=== PATIENT | female | born 1980 | race Caucasian/White ===

== ENCOUNTER → 2020-02-22 07:28 | Outpatient (CLI) | payer OTHER, SELFPAY ==
[2020-02-22 08:50] LABS: Add Manual Diff / Slide Review NO; Basophils Absolute Auto 0 /uL (0-100); Basophils Percent Auto 0.6 % (0-2); Eosinophils Absolute Auto 100 /uL (0-450); Eosinophils Percent Auto 1.8 % (2-4); Hematocrit 36.8 % (36-46); Hemoglobin 12.3 g/dL (12.0-16.0); Lymphocytes Absolute Auto 1800 /uL (1100-4500); Mean Corpuscular HGB Conc 33.4 % (30-36); Mean Corpuscular Hemoglobin 31.3 PG (26-34); Mean Corpuscular Volume 93.5 fL (80-100); Monocytes Absolute Auto 300 /uL (0-900); Neutrophils Absolute Auto 3800 /uL (1500-7000); Neutrophils Percent Auto 62.6 % (50-75); Platelet Count 273 X10^3/uL (150-400); Red Blood Cell Count 3.93 X10^6/uL (4.0-5.2); Red Cell Distribution Width 12.9 % (11.6-14.8); White Blood Cell Count 6.2 X10^3/uL (4.5-11.0)
[2020-02-22 09:15] LABS: Alanine Aminotransferase 14 IU/L (<35); Albumin Globulin Ratio 1.5 (1.0-2.8); Alkaline Phosphatase 52 U/L (38-126); Aspartate Aminotransferase 21 IU/L (14-36); BUN Creatinine Ratio 25.8 (6-22); Bilirubin Total 0.8 mg/dL (0.2-1.3); Blood Urea Nitrogen 17 mg/dL (7-17); Calcium 8.8 mg/dL (8.4-10.2); Carbon Dioxide 29 mmol/L (22-32); Chloride 109 mmol/L (98-107); Cholesterol 171 mg/dL (140-199); Estimated Glomerular Filt Rate > 60.0 mL/min (>60); Globulin 2.7 g/dL (1.7-4.1); Glucose 80 mg/dL (70-100); HDL Cholesterol 61 mg/dL (40-60); HEMOLYSIS < 15 (0-50); LDL Cholesterol Calculated 101 mg/dL (<100); Potassium 3.9 mmol/L (3.4-5.1); Sodium 138 mmol/L (137-145); Total Protein 6.7 g/dL (6.3-8.2); Triglycerides 45 mg/dL (35-150)
[2020-02-22 09:57] LABS: Free T4, Direct Thyroxine 0.82 ng/dL (0.78-2.19)
[2020-02-22 10:10] LABS: Thyroid Stimulating Hormone 1.72 uIU/mL (0.47-4.68)
[2020-02-22 10:26] LABS: Appearance Urine UA CLEAR; Bilirubin Urine UA NEGATIVE (NEGATIVE); Color Urine UA YELLOW; Glucose Urine UA NEGATIVE (Negative); Ketones Urine UA NEGATIVE (NEGATIVE); Leukocyte Esterase Urine UA NEGATIVE (NEGATIVE); Nitrite Urine UA NEGATIVE (Negative); Occult Blood Urine UA NEGATIVE (Negative); Protein Urine UA NEGATIVE (Negative); Specific Gravity Urine UA 1.015 (1.000-1.035); Urobilinogen Urine UA 0.2 E.U./dL (0.2)
[2020-02-22 10:29] LABS: pH Urine UA 7.5 (4.5-8.0)
== END ==
PROVIDERS: Family Provider Emergency Medicine; PCP Registered Nurse; Referring Provider Registered Nurse; Visit Provider Registered Nurse
DX: Z00.00 Encounter for general adult medical examination without abnormal findings (principal); E03.9 Hypothyroidism, unspecified; D64.9 Anemia, unspecified; Z82.49 Family history of ischemic heart disease and other diseases of the circulatory system
CPT/HCPCS: 36415; 80053; 80061; 81003; 84439; 84443; 85025

== ENCOUNTER → 2020-06-13 08:15 | Outpatient (CLI) | payer OTHER, SELFPAY ==
[2020-06-13 09:46] LABS: Free T4, Direct Thyroxine 0.81 ng/dL (0.78-2.19)
[2020-06-13 10:00] LABS: Thyroid Stimulating Hormone 3.24 uIU/mL (0.47-4.68)
== END ==
PROVIDERS: Family Provider Emergency Medicine; PCP Registered Nurse; Referring Provider Registered Nurse; Visit Provider Registered Nurse
DX: E03.9 Hypothyroidism, unspecified (principal)
CPT/HCPCS: 36415; 84439; 84443

== ENCOUNTER → 2021-04-06 10:16 | Outpatient (CLI) | payer OTHER, SELFPAY ==
[2021-04-06 11:20] LABS: Appearance Urine UA CLEAR; Bilirubin Urine UA NEGATIVE (NEGATIVE); Color Urine UA YELLOW; Glucose Urine UA NEGATIVE (Negative); Ketones Urine UA NEGATIVE (NEGATIVE); Leukocyte Esterase Urine UA 2+ (NEGATIVE); Nitrite Urine UA NEGATIVE (Negative); Occult Blood Urine UA 2+ (Negative); Protein Urine UA NEGATIVE (Negative); Specific Gravity Urine UA <=1.005 (1.000-1.035); Urobilinogen Urine UA 0.2 E.U./dL (0.2)
[2021-04-06 11:32] LABS: Bacteria Urine Moderate (10-30); RBC Urine 1-5/HPF (0-5/HPF); WBC Urine 30-100/HPF (0-5/HPF)
[2021-04-06 11:33] LABS: Culture Indicated Urine Specimen Cultured
== END ==
PROVIDERS: Family Provider Emergency Medicine; PCP Family Medicine; Referring Provider Family Medicine; Visit Provider Family Medicine
DX: R30.0 Dysuria (principal)
CPT/HCPCS: 81001; 87077; 87086; 87186

== ENCOUNTER → 2021-05-23 08:51 | Outpatient (CLI) | payer OTHER, SELFPAY ==
[2021-05-23 10:04] LABS: Add Manual Diff / Slide Review NO; Basophils Absolute Auto 0 /uL (0-100); Basophils Percent Auto 0.6 % (0-2); Eosinophils Absolute Auto 100 /uL (0-450); Eosinophils Percent Auto 2.1 % (2-4); Hematocrit 33.2 % (36-46); Hemoglobin 11.5 g/dL (12.0-16.0); Lymphocytes Absolute Auto 1600 /uL (1100-4500); Lymphocytes Percent Auto 30.6 % (25-40); Mean Corpuscular HGB Conc 34.6 % (30-36); Mean Corpuscular Volume 92.5 fL (80-100); Monocytes Absolute Auto 300 /uL (0-900); Monocytes Percent Auto 5.4 % (3-14); Neutrophils Absolute Auto 3200 /uL (1500-7000); Neutrophils Percent Auto 61.3 % (50-75); Platelet Count 296 X10^3/uL (150-400); Red Blood Cell Count 3.59 X10^6/uL (4.0-5.2); Red Cell Distribution Width 12.8 % (11.6-14.8); White Blood Cell Count 5.2 X10^3/uL (4.5-11.0)
[2021-05-23 10:19] LABS: Alanine Aminotransferase 21 IU/L (<35); Albumin 4.3 g/dL (3.5-5.0); Albumin Globulin Ratio 1.7 (1.0-2.8); Alkaline Phosphatase 41 U/L (38-126); Aspartate Aminotransferase 28 IU/L (14-36); Bilirubin Total 0.5 mg/dL (0.2-1.3); Blood Urea Nitrogen 9 mg/dL (7-17); Calcium 9.1 mg/dL (8.4-10.2); Carbon Dioxide 28 mmol/L (22-32); Chloride 108 mmol/L (98-107); Cholesterol 147 mg/dL (140-199); Estimated Glomerular Filt Rate > 60.0 mL/min (>60); Globulin 2.6 g/dL (1.7-4.1); Glucose 86 mg/dL (70-100); HDL Cholesterol 58 mg/dL (40-60); HEMOLYSIS < 15 (0-50); LDL Cholesterol Calculated 76 mg/dL (<100); Potassium 3.8 mmol/L (3.4-5.1); Sodium 140 mmol/L (137-145); Total Protein 6.9 g/dL (6.3-8.2); Triglycerides 65 mg/dL (35-150)
[2021-05-23 10:51] LABS: TSH w/ Reflex to FT4 3.21 uIU/mL (0.47-4.68)
== END ==
PROVIDERS: Family Provider Emergency Medicine; PCP Family Medicine; Referring Provider Family Medicine; Visit Provider Family Medicine
DX: E03.9 Hypothyroidism, unspecified (principal); E78.5 Hyperlipidemia, unspecified
CPT/HCPCS: 36415; 80053; 80061; 84443; 85025

== ENCOUNTER 2021-07-25 08:15 | Outpatient (RCR) | payer OTHER, SELFPAY ==
--- NOTE | 2021-06-20 12:47 | PT.OIE ---
Current Diagnoses Stress incontinence (female) (male) (06/20/21) Past Medical History (Last Reviewed 07/08/20 @ 08:30 by Cj Zuluaga MD) Acne Anemia, unspecified History of dilatation and curettage (~04/2017) Past Surgical History (Last Reviewed 07/08/20 @ 08:30 by Cj Zuluaga MD) Anesthesia History of dilatation and curettage (~04/2017) History of hysteroscopy (~10/2017) In vitro fertilization Visit Care Team Role Provider Type Cj Zuluaga MD Attending Provider Physician Family Provider Primary Care Provider Referring Provider Specialty: Family Practice Address: [address] [place] [address] Email: [email or web address] Physical Therapy Initial Evaluation PT-OP-A Visit Information Start: 06/19/21 13:16 Freq: Status: Active Protocol: Document 06/20/21 09:02 AMB (Rec: 06/20/21 09:36 AMB [id number]) Out-Patient Physical Therapy Visit Information Visit Information Visit Type Initial Evaluation Visit Start Time 09:00 Visit Stop Time 09:45 Total Visit Minutes 45 Visit Number 1 PT-OP-B Current Condition Start: 06/19/21 13:16 Freq: Status: Active Protocol: Document 06/20/21 09:02 AMB (Rec: 06/20/21 09:36 AMB [id number]) Current Condition History of Current Condition Onset Date 2019 Current Complaints Stress urinary incontinence History of Current Condition Natalya reports leaking with running and jumping. She reports one vaginal with 3 hours of pushing, from her description likely second degree tear. Running/jumping increase leaking, denies leaking with cough/sneeze. Denies chronic constipation, chronic cough, pelvic heaviness, urge incontinence, any leaking before the of her child. Treatment Goals Patient/Caregiver Goals Run without leaking Prior Functional Status Baseline Function- ADL's Independent Baseline Function- Mobility Independent Personal Factors Other Personal Factors That May Effect none Therapy/Recovery PT-OP-C Subjective Start: 06/19/21 13:16 Freq: Status: Active Protocol: Document 06/20/21 09:00 AMB (Rec: 06/22/21 11:42 AMB [id number]) Patient Questionnaires Pelvic Pain and Urgency/Frequency Patient Symptom Scale Pelvic Pain Score 10 PT-OP-I Pelvic Floor Start: 06/19/21 13:16 Freq: Status: Active Protocol: Document 06/20/21 09:00 AMB (Rec: 06/22/21 11:42 [facility] [id number]) Pelvic Floor Assessment Urine Pelvic Floor Surgery No Leakage Size Medium Leakage Cause Exercise Voiding Frequency 5/day Nocturia 1 Urine Pad Type Panty Liner Prolapse Rectocele Grade 2 Perineal Descent Resting Absent Bearing Present Contraction Ability Voluntary Contraction Weak Voluntary Relaxation Moderate Manual Muscle Testing Left 2 Manual Muscle Testing Right 2 Manual Muscle Testing Anterior 2 Manual Muscle Testing Posterior 3 Muscle Endurance (Seconds) 4 Number of Quick Contractions In 10 4 Seconds Comments Pelvic Floor Comments Natalya had difficulty elizabeth pelvic floor anteriorly. Difficulty maintaining contraction for more than 4 seconds. PT-OP-T Assessment and Plan Start: 06/19/21 13:16 Freq: Status: Active Protocol: Document 06/20/21 09:00 AMB (Rec: 06/22/21 11:42 [facility] [id number]) Physical Therapy Assessment Rehab Potential Rehabilitation Potential Good Evaluation Complexity Number of Personal Factors/Comorbidities 0 Number of Body Systems Impaired 1-2 Clinical Presentation at Evaluation Stable Impairments Impairments Activity Tolerance,Strength Goals Two Impairment Pelvic floor strength Short Term Goal (STG) Natalya will contract her pelvic floor for 10 seconds. STG Duration 4 weeks Skilled Nursing Goal (LTG) Natalya will contract her pelvic floor while moving from sit to stand. LTG Duration 8 weeks One Impairment Continence Short Term Goal (STG) Natalya will hop without leaking. STG Duration 4 weeks Skilled Nursing Goal (LTG) Natalya will go on a 1 mile run without leaking. LTG Duration 8weeks Assessment Summary Assessment Natalya attends physical therapy with [facility] with jumping and running s/p of her daughter almost 3 years ago. She does show signs of rectocele upon exam, but does not have a subjective experience of heaviness. She did have difficulty recruiting the anterior portion of her pelvic floor muscles, despite history of working on kegels. She will benefit from physical therapy to improve her pelvic floor strength and reduce her incontinence. Physical Therapy Plan Frequency and Duration Frequency of Treatment 1x/Week Duration of Treatment 10 weeks Plan of Care Start Date 06/20/21 Plan of Care End Date 08/29/21 Therapeutic Interventions Therapeutic Interventions Gait Training,Home Exercise Program,Manual Therapy, Neuromuscular Re-education, Self-Care/Home Management, Therapeutic Activities, Therapeutic Exercises Modalities Biofeedback,Electric Stimulation Next Visit Focus/Plan Next Note Type Treatment Note Next Visit Plan Review HEP- quick flicks and long holds in supine>sit>stand
--- NOTE | 2021-06-20 12:49 | PT.OPPOC ---
Physical, Occupational & Speech Therapy At [facility] Current Diagnoses Stress incontinence (female) (male) (06/20/21) Visit Care Team Role Provider Type Cj Zuluaga MD Attending Provider Physician Family Provider Primary Care Provider Referring Provider Specialty: Family Practice Address: [address] [place] [address] Email: [email or web address] Plan Of Care PT-OP-T Assessment and Plan Start: 06/19/21 13:16 Freq: Status: Active Protocol: Document 06/20/21 09:00 AMB (Rec: 06/22/21 11:42 AMB [id number]) Physical Therapy Assessment Rehab Potential Rehabilitation Potential Good Evaluation Complexity Number of Personal Factors/Comorbidities 0 Number of Body Systems Impaired 1-2 Clinical Presentation at Evaluation Stable Impairments Impairments Activity Tolerance,Strength Goals Two Impairment Pelvic floor strength Short Term Goal (STG) Natalya will contract her pelvic floor for 10 seconds. STG Duration 4 weeks Program Rep Goal (LTG) Natalya will contract her pelvic floor while moving from sit to stand. LTG Duration 8 weeks One Impairment Continence Short Term Goal (STG) Natalya will hop without leaking. STG Duration 4 weeks Fpc Goal (LTG) Natalya will go on a 1 mile run without leaking. LTG Duration 8weeks Assessment Summary Assessment Natalya attends physical therapy with [facility] with jumping and running s/p of her daughter almost 3 years ago. She does show signs of rectocele upon exam, but does not have a subjective experience of heaviness. She did have difficulty recruiting the anterior portion of her pelvic floor muscles, despite history of working on kegels. She will benefit from physical therapy to improve her pelvic floor strength and reduce her incontinence. Physical Therapy Plan Frequency and Duration Frequency of Treatment 1x/Week Duration of Treatment 10 weeks Plan of Care Start Date 06/20/21 Plan of Care End Date 08/29/21 Therapeutic Interventions Therapeutic Interventions Gait Training,Home Exercise Program,Manual Therapy, Neuromuscular Re-education, Self-Care/Home Management, Therapeutic Activities, Therapeutic Exercises Modalities Biofeedback,Electric Stimulation Next Visit Focus/Plan Next Note Type Treatment Note Next Visit Plan Review HEP- quick flicks and long holds in supine>sit>stand Plan of Care Dates Plan of Care Start Date 06/20/21 Plan of Care End Date 08/29/21 Electronically Signed by: Clare Albarran, PT 06/22/21 [id number] Please Sign and Return: I have reviewed this Plan of Care and certify that the skilled therapy services above are required to meet the patient?s needs. Physician Signature Date Printed Name and Credentials Clinical Instructor Signature Printed Name and Credentials
--- NOTE | 2021-07-04 09:20 | PT.OTN ---
Current Diagnoses Stress incontinence (female) (male) (07/04/21) Physical Therapy Treatment Note PT-OP-A Visit Information Start: 06/19/21 13:16 Freq: Status: Active Protocol: Document 07/04/21 08:17 AMB (Rec: 07/04/21 09:20 AMB [id number]) Out-Patient Physical Therapy Visit Information Visit Information Visit Type Treatment Note Visit Start Time 08:15 Visit Stop Time 09:00 Total Visit Minutes 45 Visit Number 2 PT-OP-B Current Condition Start: 06/19/21 13:16 Freq: Status: Active Protocol: Document 06/20/21 09:02 AMB (Rec: 06/20/21 09:36 AMB [id number]) Current Condition History of Current Condition Onset Date 2019 Current Complaints Stress urinary incontinence History of Current Condition Natalya reports leaking with running and jumping. She reports one vaginal with 3 hours of pushing, from her description likely second degree tear. Running/jumping increase leaking, denies leaking with cough/sneeze. Denies chronic constipation, chronic cough, pelvic heaviness, urge incontinence, any leaking before the of her child. Treatment Goals Patient/Caregiver Goals Run without leaking Prior Functional Status Baseline Function- ADL's Independent Baseline Function- Mobility Independent Personal Factors Other Personal Factors That May Effect none Therapy/Recovery PT-OP-C Subjective Start: 06/19/21 13:16 Freq: Status: Active Protocol: Document 07/04/21 08:17 AMB (Rec: 07/04/21 09:20 AMB [id number]) OP-PT Subjective Patient Comments Patient Reported Progress Same PT-OP-I Pelvic Floor Start: 06/19/21 13:16 Freq: Status: Active Protocol: Document 06/20/21 09:00 AMB (Rec: 06/22/21 11:42 AMB [id number]) Pelvic Floor Assessment Urine Pelvic Floor Surgery No Leakage Size Medium Leakage Cause Exercise Voiding Frequency 5/day Nocturia 1 Urine Pad Type Panty Liner Prolapse Rectocele Grade 2 Perineal Descent Resting Absent Bearing Present Contraction Ability Voluntary Contraction Weak Voluntary Relaxation Moderate Manual Muscle Testing Left 2 Manual Muscle Testing Right 2 Manual Muscle Testing Anterior 2 Manual Muscle Testing Posterior 3 Muscle Endurance (Seconds) 4 Number of Quick Contractions In 10 4 Seconds Comments Pelvic Floor Comments Natalya had difficulty elizabeth pelvic floor anteriorly. Difficulty maintaining contraction for more than 4 seconds. PT-OP-Q Treatments Start: 06/19/21 13:16 Freq: Status: Active Protocol: Document 07/04/21 08:17 AMB (Rec: 07/04/21 09:20 AMB [id number]) Therapeutic Exercises Supine Exercises legs on bolsters Supine Exercise Name quick flick/long hold Reps/Minutes 10 min Sitting Exercises roll in roll out Resistance #3 t band Reps/Minutes 2x10 Standing Exercises 1 Standing Exercise Name NBOS vs WBOS Comments challenging PT-OP-T Assessment and Plan Start: 06/19/21 13:16 Freq: Status: Active Protocol: Document 07/04/21 08:17 AMB (Rec: 07/04/21 09:20 AMB [id number]) Physical Therapy Assessment Goals Two Impairment Pelvic floor strength Short Term Goal (STG) Natalya will contract her pelvic floor for 10 seconds. STG Duration 4 weeks Control Director Goal (LTG) Natalya will contract her pelvic floor while moving from sit to stand. LTG Duration 8 weeks One Impairment Continence Short Term Goal (STG) Natalya will hop without leaking. STG Duration 4 weeks Control Director Goal (LTG) Natalya will go on a 1 mile run without leaking. LTG Duration 8weeks Assessment Summary Assessment Natalya did well with legs elevated on bolsters. Significantly harder with standing. Given seated roll in roll out for HEP. Physical Therapy Plan Next Visit Focus/Plan Next Visit Plan Review roll in roll out, can consider NMES vs standing progression based on sx
--- NOTE | 2021-07-11 15:37 | PT.OTN ---
Current Diagnoses Stress incontinence (female) (male) (07/11/21) Physical Therapy Treatment Note PT-OP-A Visit Information Start: 06/19/21 13:16 Freq: Status: Active Protocol: Document 07/11/21 08:15 AMB (Rec: 07/11/21 09:03 AMB [id number]) Out-Patient Physical Therapy Visit Information Visit Information Visit Type Treatment Note Visit Start Time 08:15 Visit Stop Time 09:00 Total Visit Minutes 45 Visit Number 3 PT-OP-B Current Condition Start: 06/19/21 13:16 Freq: Status: Active Protocol: Document 06/20/21 09:02 AMB (Rec: 06/20/21 09:36 AMB [id number]) Current Condition History of Current Condition Onset Date 2019 Current Complaints Stress urinary incontinence History of Current Condition Natalya reports leaking with running and jumping. She reports one vaginal with 3 hours of pushing, from her description likely second degree tear. Running/jumping increase leaking, denies leaking with cough/sneeze. Denies chronic constipation, chronic cough, pelvic heaviness, urge incontinence, any leaking before the of her child. Treatment Goals Patient/Caregiver Goals Run without leaking Prior Functional Status Baseline Function- ADL's Independent Baseline Function- Mobility Independent Personal Factors Other Personal Factors That May Effect none Therapy/Recovery PT-OP-C Subjective Start: 06/19/21 13:16 Freq: Status: Active Protocol: Document 07/11/21 08:15 AMB (Rec: 07/11/21 14:27 AMB [id number]) OP-PT Subjective Patient Comments Patient Comments Pt feels like her function is about the same, has been doing her exercises. PT-OP-I Pelvic Floor Start: 06/19/21 13:16 Freq: Status: Active Protocol: Document 06/20/21 09:00 AMB (Rec: 06/22/21 11:42 AMB [id number]) Pelvic Floor Assessment Urine Pelvic Floor Surgery No Leakage Size Medium Leakage Cause Exercise Voiding Frequency 5/day Nocturia 1 Urine Pad Type Panty Liner Prolapse Rectocele Grade 2 Perineal Descent Resting Absent Bearing Present Contraction Ability Voluntary Contraction Weak Voluntary Relaxation Moderate Manual Muscle Testing Left 2 Manual Muscle Testing Right 2 Manual Muscle Testing Anterior 2 Manual Muscle Testing Posterior 3 Muscle Endurance (Seconds) 4 Number of Quick Contractions In 10 4 Seconds Comments Pelvic Floor Comments Natalya had difficulty elizabeth pelvic floor anteriorly. Difficulty maintaining contraction for more than 4 seconds. PT-OP-Q Treatments Start: 06/19/21 13:16 Freq: Status: Active Protocol: Document 07/11/21 08:15 AMB (Rec: 07/11/21 14:27 AMB [id number]) Therapeutic Exercises Sitting Exercises sitting on plinth Reps/Minutes quick flicks> 4 second hold Comments cued awareness of relaxation sitting on 65cm ball Resistance up to 4-5 Reps/Minutes 10 min Comments awareness of relaxation, if can't feel it back off roll in roll out Resistance #3 t band Reps/Minutes 2x10 Other Exercises quadruped pelvic floor Comments challenging to feel PT-OP-T Assessment and Plan Start: 06/19/21 13:16 Freq: Status: Active Protocol: Document 07/11/21 08:15 AMB (Rec: 07/11/21 09:03 AMB [id number]) Physical Therapy Assessment Goals Two Impairment Pelvic floor strength Short Term Goal (STG) Natalya will contract her pelvic floor for 10 seconds. STG Duration 4 weeks Senior Living Goal (LTG) Natalya will contract her pelvic floor while moving from sit to stand. LTG Duration 8 weeks One Impairment Continence Short Term Goal (STG) Natalya will hop without leaking. STG Duration 4 weeks Senior Living Goal (LTG) Natalya will go on a 1 mile run without leaking. LTG Duration 8weeks Assessment Summary Assessment Natalya did better with encouragement to really feel the pelvic floor relax rather than trying to hold it for longer and not being able to feel it. Physical Therapy Plan Next Visit Focus/Plan Next Note Type Treatment Note Next Visit Plan Review roll in roll out, can consider NMES vs standing progression based on sx
--- NOTE | 2021-07-20 15:47 | PT.OTN ---
Current Diagnoses Stress incontinence (female) (male) (07/18/21) Physical Therapy Treatment Note PT-OP-A Visit Information Start: 06/19/21 13:16 Freq: Status: Active Protocol: Document 07/18/21 08:15 AMB (Rec: 07/18/21 08:56 AMB [id number]) Out-Patient Physical Therapy Visit Information Visit Information Visit Start Time 08:15 Visit Stop Time 09:00 Total Visit Minutes 45 Visit Number 4 PT-OP-B Current Condition Start: 06/19/21 13:16 Freq: Status: Active Protocol: Document 06/20/21 09:02 AMB (Rec: 06/20/21 09:36 AMB [id number]) Current Condition History of Current Condition Onset Date 2019 Current Complaints Stress urinary incontinence History of Current Condition Natalya reports leaking with running and jumping. She reports one vaginal with 3 hours of pushing, from her description likely second degree tear. Running/jumping increase leaking, denies leaking with cough/sneeze. Denies chronic constipation, chronic cough, pelvic heaviness, urge incontinence, any leaking before the of her child. Treatment Goals Patient/Caregiver Goals Run without leaking Prior Functional Status Baseline Function- ADL's Independent Baseline Function- Mobility Independent Personal Factors Other Personal Factors That May Effect none Therapy/Recovery PT-OP-C Subjective Start: 06/19/21 13:16 Freq: Status: Active Protocol: Document 07/18/21 08:15 AMB (Rec: 07/18/21 08:56 AMB [id number]) OP-PT Subjective Patient Comments Patient Comments HOld for 4 seconds at home is going well, 5-6 seconds is challenging PT-OP-I Pelvic Floor Start: 06/19/21 13:16 Freq: Status: Active Protocol: Document 06/20/21 09:00 AMB (Rec: 06/22/21 11:42 AMB [id number]) Pelvic Floor Assessment Urine Pelvic Floor Surgery No Leakage Size Medium Leakage Cause Exercise Voiding Frequency 5/day Nocturia 1 Urine Pad Type Panty Liner Prolapse Rectocele Grade 2 Perineal Descent Resting Absent Bearing Present Contraction Ability Voluntary Contraction Weak Voluntary Relaxation Moderate Manual Muscle Testing Left 2 Manual Muscle Testing Right 2 Manual Muscle Testing Anterior 2 Manual Muscle Testing Posterior 3 Muscle Endurance (Seconds) 4 Number of Quick Contractions In 10 4 Seconds Comments Pelvic Floor Comments Natalya had difficulty elizabeth pelvic floor anteriorly. Difficulty maintaining contraction for more than 4 seconds. PT-OP-Q Treatments Start: 06/19/21 13:16 Freq: Status: Active Protocol: Document 07/18/21 08:15 AMB (Rec: 07/18/21 08:56 AMB [id number]) Therapeutic Exercises Supine Exercises legs on bolsters Supine Exercise Name quick flick/long hold Reps/Minutes 10 min Neuro Re-Education Treatment Other Activities 1 Details NMES Comments 10 second hold and relaxation sEMG Comments baseline 1.5, max 8.4 avg 4.4. quick flicks: long holds: 8.3 max avg 4.8. PT-OP-T Assessment and Plan Start: 06/19/21 13:16 Freq: Status: Active Protocol: Document 07/18/21 08:15 AMB (Rec: 07/18/21 08:56 AMB [id number]) Physical Therapy Assessment Goals Two Impairment Pelvic floor strength Short Term Goal (STG) Natalya will contract her pelvic floor for 10 seconds. STG Duration 4 weeks Snf Goal (LTG) Natalya will contract her pelvic floor while moving from sit to stand. LTG Duration 8 weeks One Impairment Continence Short Term Goal (STG) Natalya will hop without leaking. STG Duration 4 weeks Snf Goal (LTG) Natalya will go on a 1 mile run without leaking. LTG Duration 8weeks Assessment Summary Assessment Focused on 4-5 second holds today, pt can do , did better with biofeedback than with NMES. continue to encourage being able to feel pelvic floor relaxing. Physical Therapy Plan Next Visit Focus/Plan Next Note Type Treatment Note Next Visit Plan Review roll in roll out, can consider NMES vs standing progression based on sx
--- NOTE | 2021-07-25 13:48 | PT.OTN ---
Current Diagnoses Stress incontinence (female) (male) (07/25/21) Physical Therapy Treatment Note PT-OP-A Visit Information Start: 06/19/21 13:16 Freq: Status: Active Protocol: Document 07/25/21 08:23 AMB (Rec: 07/25/21 09:10 AMB [id number]) Out-Patient Physical Therapy Visit Information Visit Information Visit Type Treatment Note Visit Start Time 08:15 Visit Stop Time 09:00 Total Visit Minutes 45 Visit Number 5 PT-OP-B Current Condition Start: 06/19/21 13:16 Freq: Status: Active Protocol: Document 06/20/21 09:02 AMB (Rec: 06/20/21 09:36 AMB [id number]) Current Condition History of Current Condition Onset Date 2019 Current Complaints Stress urinary incontinence History of Current Condition Natalya reports leaking with running and jumping. She reports one vaginal with 3 hours of pushing, from her description likely second degree tear. Running/jumping increase leaking, denies leaking with cough/sneeze. Denies chronic constipation, chronic cough, pelvic heaviness, urge incontinence, any leaking before the of her child. Treatment Goals Patient/Caregiver Goals Run without leaking Prior Functional Status Baseline Function- ADL's Independent Baseline Function- Mobility Independent Personal Factors Other Personal Factors That May Effect none Therapy/Recovery PT-OP-C Subjective Start: 06/19/21 13:16 Freq: Status: Active Protocol: Document 07/25/21 08:23 AMB (Rec: 07/25/21 09:10 AMB [id number]) OP-PT Subjective Patient Comments Patient Comments Hold 5x 4 and that feels good . PT-OP-I Pelvic Floor Start: 06/19/21 13:16 Freq: Status: Active Protocol: Document 06/20/21 09:00 AMB (Rec: 06/22/21 11:42 AMB [id number]) Pelvic Floor Assessment Urine Pelvic Floor Surgery No Leakage Size Medium Leakage Cause Exercise Voiding Frequency 5/day Nocturia 1 Urine Pad Type Panty Liner Prolapse Rectocele Grade 2 Perineal Descent Resting Absent Bearing Present Contraction Ability Voluntary Contraction Weak Voluntary Relaxation Moderate Manual Muscle Testing Left 2 Manual Muscle Testing Right 2 Manual Muscle Testing Anterior 2 Manual Muscle Testing Posterior 3 Muscle Endurance (Seconds) 4 Number of Quick Contractions In 10 4 Seconds Comments Pelvic Floor Comments Natalya had difficulty elizabeth pelvic floor anteriorly. Difficulty maintaining contraction for more than 4 seconds. PT-OP-Q Treatments Start: 06/19/21 13:16 Freq: Status: Active Protocol: Document 07/25/21 08:15 AMB (Rec: 07/25/21 13:46 AMB [id number]) Therapeutic Exercises Sitting Exercises 1 Sitting Exercise Name 5 hold with toe tap or UE flexion sitting on plinth Reps/Minutes quick flicks> 4 second hold Comments cued awareness of relaxation sitting on 65cm ball Resistance up to 4-5 Reps/Minutes 10 min Comments awareness of relaxation, i Other Exercises quadruped pelvic floor Comments challenging to feel PT-OP-T Assessment and Plan Start: 06/19/21 13:16 Freq: Status: Active Protocol: Document 07/25/21 08:23 AMB (Rec: 07/25/21 09:10 AMB [id number]) Physical Therapy Assessment Goals Two Impairment Pelvic floor strength Short Term Goal (STG) Natalya will contract her pelvic floor for 10 seconds. STG Duration 4 weeks Fpc Goal (LTG) Natalya will contract her pelvic floor while moving from sit to stand. LTG Duration 8 weeks One Impairment Continence Short Term Goal (STG) Natalya will hop without leaking. STG Duration 4 weeks Clinic [facility] Goal (LTG) Natalya will go on a 1 mile run without leaking. LTG Duration 8weeks Assessment Summary Assessment Toe tap on ball and UE flexion on ball during 5 holds x 4 ea as HEP today. Does have one finger width diastasis but not symptomatic at this time. Did discuss working pelvic floor into current exercises. Physical Therapy Plan Next Visit Focus/Plan Next Note Type Treatment Note Next Visit Plan Review roll in roll out, can consider NMES vs standing progression based on sx
--- NOTE | 2021-08-22 11:02 | PT.OPDS ---
Current Diagnoses Stress incontinence (female) (male) (07/25/21) Visit Care Team Role Provider Type Cj Zuluaga MD Attending Provider Physician Family Provider Primary Care Provider Referring Provider Specialty: Family Practice Address: [address] [place] [address], [facility] Email: [email or web address] Visit Number Visit Number 5 Discharge Summary PT-OP-B Current Condition Start: 06/19/21 13:16 Freq: Status: Active Protocol: Document 06/20/21 09:02 AMB (Rec: 06/20/21 09:36 AMB [id number]) Current Condition History of Current Condition Onset Date 2019 Current Complaints Stress urinary incontinence History of Current Condition Natalya reports leaking with running and jumping. She reports one vaginal with 3 hours of pushing, from her description likely second degree tear. Running/jumping increase leaking, denies leaking with cough/sneeze. Denies chronic constipation, chronic cough, pelvic heaviness, urge incontinence, any leaking before the of her child. Treatment Goals Patient/Caregiver Goals Run without leaking Prior Functional Status Baseline Function- ADL's Independent Baseline Function- Mobility Independent Personal Factors Other Personal Factors That May Effect none Therapy/Recovery PT-OP-C Subjective Start: 06/19/21 13:16 Freq: Status: Active Protocol: Document 07/25/21 08:23 AMB (Rec: 07/25/21 09:10 AMB [id number]) OP-PT Subjective Patient Comments Patient Comments Hold 5x 4 and that feels good . PT-OP-I Pelvic Floor Start: 06/19/21 13:16 Freq: Status: Active Protocol: Document 06/20/21 09:00 AMB (Rec: 06/22/21 11:42 AMB [id number]) Pelvic Floor Assessment Urine Pelvic Floor Surgery No Leakage Size Medium Leakage Cause Exercise Voiding Frequency 5/day Nocturia 1 Urine Pad Type Panty Liner Prolapse Rectocele Grade 2 Perineal Descent Resting Absent Bearing Present Contraction Ability Voluntary Contraction Weak Voluntary Relaxation Moderate Manual Muscle Testing Left 2 Manual Muscle Testing Right 2 Manual Muscle Testing Anterior 2 Manual Muscle Testing Posterior 3 Muscle Endurance (Seconds) 4 Number of Quick Contractions In 10 4 Seconds Comments Pelvic Floor Comments Natalya had difficulty elizabeth pelvic floor anteriorly. Difficulty maintaining contraction for more than 4 seconds. PT-OP-T Assessment and Plan Start: 06/19/21 13:16 Freq: Status: Active Protocol: Document 08/22/21 11:00 AMB (Rec: 08/22/21 11:02 AMB [id number]) Physical Therapy Assessment Goals Two Impairment Pelvic floor strength Short Term Goal (STG) Natalya will contract her pelvic floor for 10 seconds. STG Duration MET Senior Living Goal (LTG) Natalya will contract her pelvic floor while moving from sit to stand. LTG Duration MET One Impairment Continence Short Term Goal (STG) Natalya will hop without leaking. STG Duration 4 weeks Senior Living Goal (LTG) Natalya will go on a 1 mile run without leaking. LTG Duration 8weeks Assessment Summary Assessment Natalya canceled her last appointment and elected not to reschedule due to high deductible, She has been educated in a HEP for pelvic floor strengthening, and had seen some improvement, although she will need to continue to work independently to avoid all leaking.
== END 2021-08-25 10:04 ==
LOC: PHYS 08:15
PROVIDERS: Family Provider Family Medicine; PCP Family Medicine; Referring Provider Family Medicine; Visit Provider Family Medicine
DX: N39.3 Stress incontinence (female) (male) (principal)
CPT/HCPCS: 97110; 97112; 97161

== ENCOUNTER → 2021-11-15 09:58 | Outpatient (CLI) | payer OTHER, SELFPAY ==
--- NOTE | 2021-11-15 09:59 | DI.MG.S_ITS ---
BILATERAL DIGITAL SCREENING MAMMOGRAM 3D/2D WITH CAD: 11/15/2021 CLINICAL: Routine screening. No prior exams were available for comparison. The tissue of both breasts is heterogeneously dense. This may lower the sensitivity of mammography. Current study was also evaluated with a Computer Aided Detection (CAD) system. No significant masses, calcifications, or other findings are seen in either breast. IMPRESSION: NEGATIVE There is no mammographic evidence of malignancy. A 1 year screening mammogram is recommended. This exam was interpreted at Station ID: [id number]. NOTE: For mammograms, a report in lay terms will be sent to the patient. Approximately 15% of breast malignancies will not be visualized mammographically. In the management of a palpable breast mass, a negative mammogram must not discourage biopsy of a clinically suspicious lesion. Electronically Signed By: Jac Minor M.D., [email or web address]/[email or web address]:11/15/2021 15:07:17 letter sent: Normal Exam ACR BI-RADS Category 1: Negative [id number]
== END ==
PROVIDERS: Family Provider Family Medicine; PCP Family Medicine; Referring Provider Family Medicine; Visit Provider Family Medicine
DX: Z12.31 Encounter for screening mammogram for malignant neoplasm of breast (principal)
CPT/HCPCS: 77063; 77067

== ENCOUNTER → 2022-06-28 09:27 | Outpatient (CLI) | payer OTHER, SELFPAY ==
[2022-06-28 11:21] LABS: Add Manual Diff / Slide Review NO; Basophils Absolute Auto 100 /uL (0-100); Basophils Percent Auto 0.8 % (0-2); Eosinophils Absolute Auto 100 /uL (0-450); Eosinophils Percent Auto 1.5 % (2-4); Hematocrit 34.9 % (36-46); Lymphocytes Absolute Auto 2100 /uL (1100-4500); Lymphocytes Percent Auto 32.7 % (25-40); Mean Corpuscular HGB Conc 34.3 % (30-36); Mean Corpuscular Hemoglobin 31.5 PG (26-34); Mean Corpuscular Volume 91.8 fL (80-100); Monocytes Absolute Auto 400 /uL (0-900); Monocytes Percent Auto 6.5 % (3-14); Neutrophils Absolute Auto 3800 /uL (1500-7000); Neutrophils Percent Auto 58.5 % (50-75); Platelet Count 257 X10^3/uL (150-400); Red Cell Distribution Width 13.4 % (11.6-14.8); White Blood Cell Count 6.5 X10^3/uL (4.5-11.0)
[2022-06-28 12:02] LABS: Alanine Aminotransferase 25 IU/L (<35); Albumin 4.2 g/dL (3.5-5.0); Albumin Globulin Ratio 1.6 (1.0-2.8); Alkaline Phosphatase 44 U/L (38-126); Aspartate Aminotransferase 24 IU/L (14-36); BUN Creatinine Ratio 18.1 (6-22); Blood Urea Nitrogen 13 mg/dL (7-17); Calcium 9.5 mg/dL (8.4-10.2); Carbon Dioxide 26 mmol/L (22-32); Chloride 104 mmol/L (98-107); Cholesterol 150 mg/dL (140-199); Estimated Glomerular Filt Rate > 60 mL/min (>60); Globulin 2.7 g/dL (1.7-4.1); Glucose 76 mg/dL (70-100); HDL Cholesterol 51 mg/dL (40-60); HEMOLYSIS < 15 (0-50); LDL Cholesterol Calculated 85 mg/dL (<100); Potassium 4.3 mmol/L (3.4-5.1); Sodium 137 mmol/L (137-145); Total Protein 6.9 g/dL (6.3-8.2); Triglycerides 69 mg/dL (35-150)
[2022-06-28 12:21] LABS: TSH w/ Reflex to FT4 2.66 uIU/mL (0.47-4.68)
== END ==
PROVIDERS: Family Provider Family Medicine; PCP Family Medicine; Referring Provider Family Medicine; Visit Provider Family Medicine
DX: E03.9 Hypothyroidism, unspecified (principal); E78.5 Hyperlipidemia, unspecified; Z00.00 Encounter for general adult medical examination without abnormal findings
CPT/HCPCS: 36415; 80053; 80061; 84443; 85025

== ENCOUNTER → 2023-08-03 09:12 | Outpatient (CLI) | payer OTHER, SELFPAY ==
[2023-08-03 10:01] LABS: Add Manual Diff / Slide Review NO; Basophils Absolute Auto 0 /uL (0-100); Basophils Percent Auto 0.6 % (0-2); Eosinophils Absolute Auto 200 /uL (0-450); Eosinophils Percent Auto 3.3 % (2-4); Hematocrit 34.9 % (36-46); Lymphocytes Absolute Auto 2000 /uL (1100-4500); Lymphocytes Percent Auto 29.2 % (25-40); Mean Corpuscular HGB Conc 34.5 % (30-36); Mean Corpuscular Hemoglobin 32.1 PG (26-34); Mean Corpuscular Volume 93.2 fL (80-100); Monocytes Absolute Auto 400 /uL (0-900); Monocytes Percent Auto 5.8 % (3-14); Neutrophils Absolute Auto 4100 /uL (1500-7000); Neutrophils Percent Auto 61.1 % (50-75); Platelet Count 223 X10^3/uL (150-400); Red Blood Cell Count 3.75 X10^6/uL (4.0-5.2); Red Cell Distribution Width 13.2 % (11.6-14.8); White Blood Cell Count 6.8 X10^3/uL (4.5-11.0)
[2023-08-03 10:17] LABS: Alanine Aminotransferase 22 IU/L (<35); Albumin 4.3 g/dL (3.5-5.0); Albumin Globulin Ratio 1.7 (1.0-2.8); Alkaline Phosphatase 50 U/L (38-126); Aspartate Aminotransferase 27 IU/L (14-36); BUN Creatinine Ratio 24.6 (6-22); Bilirubin Total 0.8 mg/dL (0.2-1.3); Blood Urea Nitrogen 15 mg/dL (7-17); Calcium 9.4 mg/dL (8.4-10.2); Carbon Dioxide 27 mmol/L (22-32); Chloride 110 mmol/L (98-107); Cholesterol 159 mg/dL (140-199); Estimated Glomerular Filt Rate > 60 mL/min (>60); Globulin 2.5 g/dL (1.7-4.1); Glucose 81 mg/dL (70-100); HDL Cholesterol 66 mg/dL (40-60); HEMOLYSIS < 15 (0-50); LDL Cholesterol Calculated 79 mg/dL (<100); Potassium 4.2 mmol/L (3.4-5.1); Sodium 139 mmol/L (137-145); Total Protein 6.8 g/dL (6.3-8.2); Triglycerides 68 mg/dL (35-150)
[2023-08-03 10:48] LABS: TSH w/ Reflex to FT4 2.39 uIU/mL (0.47-4.68)
[2023-08-03 10:51] LABS: Ferritin 8 ng/mL (6-137)
[2023-08-03 11:05] LABS: Vitamin B12 > 1000 pg/mL (239-931)
[2023-08-04 08:44] LABS: Apolipoprotein B 70 mg/dL (<90)
== END ==
PROVIDERS: Family Provider Family Medicine; PCP Family Medicine; Referring Provider Family Medicine; Visit Provider Family Medicine
DX: Z00.00 Encounter for general adult medical examination without abnormal findings (principal); E78.5 Hyperlipidemia, unspecified; E03.9 Hypothyroidism, unspecified; R42 Dizziness and giddiness; Z12.39 Encounter for other screening for malignant neoplasm of breast
CPT/HCPCS: 36415; 80053; 80061; 82172; 82607; 82728; 84443; 85025

== ENCOUNTER → 2023-12-07 11:09 | Outpatient (CLI) | payer OTHER, SELFPAY ==
--- NOTE | 2023-12-07 11:10 | DI.MG.S_ITS ---
BILATERAL DIGITAL SCREENING MAMMOGRAM 3D/2D WITH CAD: 12/07/2023 CLINICAL: Routine screening. Comparison is made to exam dated: 11/15/2021 mammogram - [facility]. Both breasts are heterogeneously dense, which may obscure small masses (category c / 51-75% glandular tissue). Current study was also evaluated with a Computer Aided Detection (CAD) system. No significant masses, calcifications, or other findings are seen in either breast. There has been no significant interval change. IMPRESSION: NEGATIVE There is no mammographic evidence of malignancy. A 1 year screening mammogram is recommended. Based on the Tyrer Cuzick model (a risk assessment model) the patient's lifetime risk is 15.8% and her 10 year risk is 2.9%. According to the ACR, ACS, and NCCN guidelines, an annual breast MRI exam along with mammogram is recommended if the patient's lifetime risk is 20% or greater. This exam was interpreted at Station ID: [id number]. NOTE: For mammograms, a report in lay terms will be sent to the patient. Approximately 15% of breast malignancies will not be visualized mammographically. In the management of a palpable breast mass, a negative mammogram must not discourage biopsy of a clinically suspicious lesion. Electronically Signed By: Diana Cotto M.D., Ph.D. [email or web address]:12/10/2023 16:50:55 letter sent: Normal Exam ACR BI-RADS Category 1: Negative [id number]
== END ==
PROVIDERS: Family Provider Family Medicine; PCP Family Medicine; Referring Provider Family Medicine; Visit Provider Family Medicine
DX: Z12.31 Encounter for screening mammogram for malignant neoplasm of breast (principal)
CPT/HCPCS: 77063; 77067

== ENCOUNTER → 2024-11-06 15:33 | Outpatient (CLI) | payer OTHER, SELFPAY ==
[2024-11-06 16:13] LABS: Add Manual Diff / Slide Review NO; Hematocrit 33.6 % (36-46); Hemoglobin 11.5 g/dL (12.0-16.0); Lymphocytes Absolute Auto 1900 /uL (1100-4500); Mean Corpuscular HGB Conc 34.4 % (30-36); Mean Corpuscular Hemoglobin 32.1 PG (26-34); Mean Corpuscular Volume 93.5 fL (80-100); Platelet Count 243 X10^3/uL (150-400)
[2024-11-06 16:34] LABS: HEMOLYSIS < 15 (0-50); Iron 53 ug/dL (37-170)
[2024-11-06 16:36] LABS: Alanine Aminotransferase 20 IU/L (<35); Albumin 4.2 g/dL (3.5-5.0); Albumin Globulin Ratio 1.8 (1.0-2.8); Alkaline Phosphatase 55 U/L (38-126); Blood Urea Nitrogen 17 mg/dL (7-17); Calcium 9.5 mg/dL (8.4-10.2); Carbon Dioxide 24 mmol/L (22-32); Chloride 106 mmol/L (98-107); Cholesterol 152 mg/dL (140-199); Estimated Glomerular Filt Rate > 60 mL/min (>60); Globulin 2.4 g/dL (1.7-4.1); Glucose 96 mg/dL (70-99); HDL Cholesterol 59 mg/dL (40-60); HEMOLYSIS < 15 (0-50); Potassium 4.1 mmol/L (3.4-5.1); Sodium 139 mmol/L (137-145); Total Protein 6.6 g/dL (6.3-8.2); Triglycerides 94 mg/dL (35-150)
[2024-11-06 16:45] LABS: Percent Iron Saturation 13 % (15-50); Total Iron Binding Capacity 397 ug/dL (265-497); Transferrin 325 mg/dL (206-381)
[2024-11-06 17:07] LABS: TSH w/ Reflex to FT4 2.59 uIU/mL (0.47-4.68)
[2024-11-06 17:10] LABS: Ferritin 12 ng/mL (6-137)
[2024-11-06 17:42] LABS: Microalbumi Creatinin Ratio Ur 27.0 ug/mg CR (<30)
== END ==
PROVIDERS: Family Provider Family Medicine; PCP Family Medicine; Referring Provider Family Medicine; Visit Provider Family Medicine
DX: Z00.00 Encounter for general adult medical examination without abnormal findings (principal); N95.1 Menopausal and female climacteric states; D64.9 Anemia, unspecified; E78.5 Hyperlipidemia, unspecified; E03.9 Hypothyroidism, unspecified
CPT/HCPCS: 36415; 80053; 80061; 82043; 82172; 82570; 82728; 83540; 83550; 84443; 85025